=== PATIENT | female | born 1965 | race Caucasian/White ===

== ENCOUNTER 2020-07-25 10:57 | Emergency (ER) | payer BC, SELFPAY ==
--- NOTE | 2020-07-25 12:00 | HMH.EDUTC ---
[facility] [place] Disposition Clinical Impression: Exposure to COVID-19 virus Disposition: Home, Self-Care Condition on Discharge: Good Instructions: Preventing the Spread of Coronavirus Discharge Instructions Additional Instructions: You have been tested for COVID19. These results should be available in 24-48 hours. Please isolate yourself as if you are positive until test results received. Referrals: PCP,No [Primary Care Provider] - Time of Disposition: 12:09 Medical Decision Making - Basil Inquiry Pt receiving controlled substance: No Orders (Tests/Meds): ORDERS Category Date Time Status Covid-19 Nasal PCR Sendout [facility] 07/25/20 11:49 Received [facility] [place] HPI - General Stated complaint: covid test due to exposure, cough Time Seen by Provider: 07/25/20 12:00 - History of Present Illness Provider Complaint: Possible exposure to COVID19 at work. She states that she always wears her mask, but two of her managers have tested positive so she would like to be sure. She has had an itchy throat and a mild cough. No fever. No loss of taste or smell. No vomiting or diarrhea. Relieving factors: none Exacerbating factors: none Associated symptoms: cough Treatments prior to arrival: none [facility] History - Hepatitis A Screen Attestation statement:: This patient has been screened for Hepatitis A risk factors. I have reviewed the patient's past medical history: Yes ROS Obtained: Yes All systems reviewed & no additional complaints - Respiratory Respiratory: Yes cough Physical Exam - General General appearance: alert, in no apparent distress - Head Head exam: normocephalic - Eye Eye exam: Present: PERRL - ENT ENT exam: Present: normal oropharynx, TM's normal bilaterally - Neck Neck exam: Present: normal inspection. Absent: lymphadenopathy - Chest Chest inspection: Present: normal inspection, symmetric chest wall rise - Respiratory Respiratory exam: Present: normal lung sounds bilaterally - Cardiovascular Cardiovascular exam: Present: regular rate, normal rhythm - Neurological Exam Neurological exam: Present: alert, oriented X3 - Psychiatric Psychiatric exam: Present: normal affect, normal mood - Skin Skin exam: Present: warm, dry, intact
[2020-07-25 12:02] VITALS: BP 149/90; PULSE 72; RESP 18; TEMP 36.8; O2SAT 99; BMI 20.3
[2020-07-25 12:14] VITALS: BP 149/90; PULSE 72; RESP 18; TEMP 36.8; O2SAT 99
[2020-07-26 10:09] LABS: Covid-19 Nasal PCR Sendout UK NOT DETECTED
== END 2020-07-25 12:15 | disposition home or self-care (01) ==
PROVIDERS: Emergency Provider Physician Assistant
DX: Z20.828 Contact with and (suspected) exposure to other viral communicable diseases (principal); R05 Cough
CPT/HCPCS: 99201; U0003